=== PATIENT | female | born 1960 | race Two or more races ===

== ENCOUNTER 2019-10-18 05:55 | Day surgery (SDC) | payer OTHER ==
[~2019-10-18 05:55] MED LIST: BREO ELLIPTA 21 EACH IH; COZAAR25 MG PO; NP THYROID90 MG PO; SINGULAIR10 MG PO
== END 2019-10-18 16:30 | disposition home or self-care (01) ==
LOC: CIR.AMB 05:55
DX: K60.1 Chronic anal fissure (principal); K62.4 Stenosis of anus and rectum; D12.8 Benign neoplasm of rectum

== ENCOUNTER 2023-08-18 15:10 | Outpatient (CLI) | payer OTHER ==
[~2023-08-18 15:10] MED LIST changes: +NABUMETONE750 MG PO; +NORFLEX100MG PO
== END 2023-08-18 15:14 | disposition home or self-care (01) ==
LOC: RAD 15:10
PROVIDERS: ATTEND Physical Medicine & Rehabilitation
DX: M54.50 Low back pain, unspecified (principal); M79.604 Pain in right leg